=== PATIENT | female | born 1985 | race Two or more races ===

== ENCOUNTER → 2019-06-05 | Emergency (ER) | payer SELFPAY ==
[~2019-06-05] VITALS: Ht 170.2 cm; Wt 72.7 kg
[~2019-06-05] MED LIST: CEPH500 PO; CefTRIAXone 1 GM/DEXTROSE 50 ML IV ONE; IOVERSOL 350 MG/ML 100 ML VIAL ONE; KETOROLAC TROMETHAMINE 30 MG/ML VIAL IVP ONE; SODIUM CHLORIDE 0.9% 1,000 ML IV ONE; SODIUM CHLORIDE 0.9% 100 ML ONE; SULF-261 PO; SULFAMETHOX/TRIMETH DS 800-160 MG/TABLET PO ONE
[2019-06-05 05:04] LABS: BASOPHILS % (AUTO) 0.8 % (0.0-2.0); EOSINOPHILS % (AUTO) 5.7 % (1.0-6.0); HEMATOCRIT 39.5 % (36-46); HEMOGLOBIN 13.3 g/dL (12.0-16.0); LYMPHOCYTES # (AUTO) 2.4 K/uL (1.0-4.8); LYMPHOCYTES % (AUTO) 23.1 % (22.0-44.0); MEAN CORPUSCULAR HGB CONC 33.6 G/dL (31.0-37.0); MEAN CORPUSCULAR VOLUME 83 fL (80-100); MONOCYTES # (AUTO) 0.8 K/uL (0.1-1.0); MONOCYTES % (AUTO) 7.3 % (2.0-9.0); NEUTROPHILS # (AUTO) 6.7 K/uL (1.8-7.7); NEUTROPHILS % (AUTO) 63.1 % (40.0-70.0); PLATELET COUNT (AUTO) 354 K/uL (150-450); RED BLOOD CELL COUNT(AUTO) 4.74 MIL/uL (4.00-5.20); RED CELL DISTRIBUTION WIDTH 14.9 % (11.5-14.5)
[2019-06-05 05:13] LABS: ANION GAP 7 mmol/L (8-16); CALCIUM, TOTAL 9.3 mg/dL (8.8-10.5); CARBON DIOXIDE 30 mmol/L (22-29); CHLORIDE 101 mmol/L (98-107); CREATININE 0.68 mg/dL (0.60-1.30); GLOMERULAR FILTR. RATE CALC > 60 mL/min (>60); GLUCOSE,RANDOM 93 mg/dL (70-110); POTASSIUM 3.5 mmol/L (3.5-5.1); SODIUM SERUM 138 mmol/L (136-145); UREA NITROGEN, BLOOD 13 mg/dL (7-18)
[2019-06-05 05:25] LABS: ALANINE AMINOTRANSFERASE 22 U/L (12-78); ALBUMIN 4.1 g/dL (3.4-5.0); ALKALINE PHOSPHATASE 76 U/L (46-116); ASPARTATE AMINOTRANSFERASE 12 U/L (15-37); BILIRUBIN,TOTAL 0.3 mg/dL (0.1-1.0); HCG,QUANTITATIVE < 1 mIU/mL (0-6); TOTAL PROTEIN, SERUM 7.8 g/dL (6.4-8.2)
[2019-06-05 06:06] VITALS: BP 132/70
== END | disposition home or self-care (01) ==
LOC: EMS 02:02
DX: H60.11 Cellulitis of right external ear (principal); K05.4 Periodontosis; H93.8X1 Other specified disorders of right ear
CPT/HCPCS: 36415; 70491; 80053; 84702; 85025; 96365; 96375; 99284; J0696; J1885; J7030; J7050; Q9967

== ENCOUNTER 2019-06-07 16:06 | Emergency (ER) | payer SELFPAY ==
[~2019-06-07] VITALS: Ht 167.6 cm; Wt 61.4 kg
[2019-06-07] MEDS ORDERED: SULF-261 PO (16:35)
[2019-06-07] MEDS ORDERED: CEPH500 PO (16:35)
[2019-06-07 18:07] VITALS: BP 138/85
[2019-06-07] MEDS ORDERED: LIDOCAINE 1% 10 ML VIAL INJ ONE (18:15)
[2019-06-07] MEDS ORDERED: PERTUSS(ACELL),DIPH,TET VAC/PF 0.5 ML VIAL IM ONE (18:15)
== END 2019-06-07 18:43 | disposition home or self-care (01) ==
LOC: EMS 16:07
DX: S00.452A Superficial foreign body of left ear, initial encounter (principal); W22.8XXA Striking against or struck by other objects, initial encounter; Y93.89 Activity, other specified; Y92.89 Other specified places as the place of occurrence of the external cause; Y99.8 Other external cause status
CPT/HCPCS: 10120; 90471; 90715